=== PATIENT | female | born 1940 | race Caucasian/White ===

== ENCOUNTER → 2018-06-09 | Outpatient (CLI) | payer BC, MEDICARE | END | disposition home or self-care (01) | LOC: CFH 07:43 | PROVIDERS: ATTEND Internal Medicine Cardiovascular Disease | DX: I08.1 Rheumatic disorders of both mitral and tricuspid valves (principal); I11.9 Hypertensive heart disease without heart failure; I48.91 Unspecified atrial fibrillation | CPT/HCPCS: 93306 ==

== ENCOUNTER 2018-12-20 08:57 | Day surgery (SDC) | payer MEDICARE ==
[2018-12-18 12:22] LABS: BASOPHILS # (AUTO) 0.02 x10^3/uL (0-0.1); BASOPHILS % (AUTO) 0 % (0-1); EOSINOPHILS # (AUTO) 0.07 x10^3/uL (0-0.4); EOSINOPHILS % (AUTO) 1 % (1-7); LYMPHOCYTES # (AUTO) 1.23 x10^3/uL (1-3.4); LYMPHOCYTES % (AUTO) 22 % (22-44); MD NO; MEAN CORPUSCULAR HEMOGLOBIN 30.4 pg (27.0-34.8); MEAN CORPUSCULAR HGB CONC 32.3 g/dL (32.4-35.8); MEAN CORPUSCULAR VOLUME 94.1 fL (80-100); MEAN PLATELET VOLUME 10.1 fL (7.4-10.4); MONOCYTES # (AUTO) 0.59 x10^3/uL (0.2-0.8); MONOCYTES % (AUTO) 11 % (2-9); NEUTROPHILS # (AUTO) 3.64 x10^3/uL (1.8-6.8); NEUTROPHILS % (AUTO) 66 % (42-75); PLATELET COUNT 167 x10^3/uL (130-400); RED BLOOD COUNT 4.61 x10^6/uL (3.82-5.3); RED CELL DISTRIBUTION WIDTH 15.9 % (9.6-15.2)
[2018-12-18 12:30] LABS: INTERNATIONAL NORMALIZED RATIO 1.11 (0.93-1.1); PROTHROMBIN TIME 11.6 Seconds (9.6-11.5)
[2018-12-18 12:33] LABS: ANION GAP 4 mmol/L (5-15); CHLORIDE 105 mmol/L (98-107)
[~2018-12-20] VITALS: Ht 160 cm; Wt 98.1 kg
[~2018-12-20 08:57] MED LIST: ALLO300T PO; BISO5TAB2 PO; HYDR25TA6 PO; LEVO25TA4 PO; MULT-806 PO; RIVA20TA PO; magnesium PO
[2018-12-20] MEDS ORDERED: SODIUM CHLORIDE 0.9% 1,000 ML IV SCH ×2 (09:02→10:40)
[2018-12-20 09:14] VITALS: BP 145/80
[2018-12-20] MEDS ORDERED: DIPHENHYDRAMINE 50 MG/ML, 1ML IVPush ONE (09:30)
[2018-12-20] MEDS ORDERED: FENTANYL PF 100 MCG/2ML ONE (09:32)
[2018-12-20] MEDS ORDERED: HEPARIN 1,000 UNITS/ML, 10ML ONE (09:32)
[2018-12-20] MEDS ORDERED: NITROGLYCERIN 5 MG/ML, 10ML ONE (09:32)
[2018-12-20] MEDS ORDERED: DIPHENHYDRAMINE 50 MG/ML, 1ML ONE ×2 (09:33→09:34)
[2018-12-20] MEDS ORDERED: VERAPAMIL 2.5 MG/ML, 2ML ONE (09:33)
[2018-12-20] MEDS ORDERED: LIDOCAINE-MPF 1%, 5ML ONE (09:33)
[2018-12-20] MEDS ORDERED: MIDAZOLAM 1 MG/ML, 2ML ONE (09:33)
== END 2018-12-20 14:00 | disposition home or self-care (01) ==
LOC: CACL 08:57
PROVIDERS: ATTEND Internal Medicine Cardiovascular Disease
DX: I25.10 Atherosclerotic heart disease of native coronary artery without angina pectoris (principal); I35.0 Nonrheumatic aortic (valve) stenosis; I48.91 Unspecified atrial fibrillation; Z88.0 Allergy status to penicillin; Z88.8 Allergy status to other drugs, medicaments and biological substances; I10 Essential (primary) hypertension
CPT/HCPCS: 36415; 80048; 85025; 85610; 93454; 99156; C1769; C1894; J1200; J1644; J2250; J3010; Q9967

== ENCOUNTER 2019-01-16 08:52 | Outpatient (CLI) | payer MEDICARE ==
[2019-01-16] MEDS ORDERED: OMNIPAQUE 350 MG/ML, 150 ML BOTTLE ONE (15:00)
== END 2019-01-16 23:59 | disposition home or self-care (01) ==
LOC: CVU 08:52
PROVIDERS: ATTEND Internal Medicine Cardiovascular Disease
DX: I08.8 Other rheumatic multiple valve diseases (principal); I65.23 Occlusion and stenosis of bilateral carotid arteries; R91.8 Other nonspecific abnormal finding of lung field; I70.0 Atherosclerosis of aorta; M47.816 Spondylosis without myelopathy or radiculopathy, lumbar region; I48.91 Unspecified atrial fibrillation; I10 Essential (primary) hypertension; Z87.891 Personal history of nicotine dependence; Z90.49 Acquired absence of other specified parts of digestive tract
CPT/HCPCS: 71275; 74174; 93306; 93880; 94060; 94726; 94729; Q9967

== ENCOUNTER 2019-02-13 07:06 | Inpatient (IN) | payer MEDICARE ==
[~2019-02-13] VITALS: Ht 161.3 cm; Wt 99.0 kg
[2019-02-13] MEDS ORDERED: SODIUM CHLORIDE 0.9% 1,000 ML IV ONE (07:57)
[2019-02-13 07:58] VITALS: BP 143/65
[2019-02-13] MEDS ORDERED: ONDANSETRON 2MG/ML, 2ML IVPush PRN ×2 (08:00→11:00)
[2019-02-13] MEDS ORDERED: CHLORHEXIDINE 15 ML UDC MM PRN (08:00)
[2019-02-13 08:23] LABS: BASOPHILS # (AUTO) 0.02 x10^3/uL (0-0.1); BASOPHILS % (AUTO) 0 % (0-1); EOSINOPHILS # (AUTO) 0.07 x10^3/uL (0-0.4); EOSINOPHILS % (AUTO) 1 % (1-7); LYMPHOCYTES # (AUTO) 0.94 x10^3/uL (1-3.4); LYMPHOCYTES % (AUTO) 18 % (22-44); MD NO; MEAN CORPUSCULAR HEMOGLOBIN 30.8 pg (27.0-34.8); MEAN CORPUSCULAR HGB CONC 32.4 g/dL (32.4-35.8); MEAN CORPUSCULAR VOLUME 95.1 fL (80-100); MEAN PLATELET VOLUME 10.1 fL (7.4-10.4); MONOCYTES # (AUTO) 0.61 x10^3/uL (0.2-0.8); MONOCYTES % (AUTO) 12 % (2-9); NEUTROPHILS # (AUTO) 3.56 x10^3/uL (1.8-6.8); NEUTROPHILS % (AUTO) 69 % (42-75); PLATELET COUNT 146 x10^3/uL (130-400); RED BLOOD COUNT 4.65 x10^6/uL (3.82-5.3); RED CELL DISTRIBUTION WIDTH 16.2 % (9.6-15.2)
[2019-02-13] MEDS: PLEASE ENTER HEIGHT AND WEIGHT MC SCH ×2 (08:30→11:35)
[2019-02-13 08:31] LABS: INTERNATIONAL NORMALIZED RATIO 1.05 (0.93-1.1)
[2019-02-13 08:33] LABS: ALBUMIN 3.8 g/dL (3.4-5.0); ANION GAP 7 mmol/L (5-15); CALCIUM 10.3 mg/dL (8.5-10.1); CHLORIDE 105 mmol/L (98-107)
[2019-02-13 08:39] LABS: ALANINE AMINOTRANSFERASE 23 U/L (12-78); ALKALINE PHOSPHATASE 142 U/L (45-117); BILIRUBIN,TOTAL 0.9 mg/dL (0.2-1.0); CREATININE 0.77 mg/dL (0.55-1.02); TOTAL PROTEIN 7.7 g/dL (6.4-8.2)
[2019-02-13] MEDS ORDERED: PROTAMINE SULFATE 10 MG/ML, 5ML ONE (09:22)
[2019-02-13] MEDS ORDERED: FENTANYL PF 250 MCG/5ML ONE (09:23)
[2019-02-13] MEDS ORDERED: SCOPOLAMINE PATCH, 1.5MG PATCH.TD72 TD ONE (09:30)
[2019-02-13] MEDS ORDERED: SUCCINYLCHOLINE 20 MG/ML, 10ML ONE (09:32)
[2019-02-13] MEDS ORDERED: ONDANSETRON 2MG/ML, 2ML ONE (09:32)
[2019-02-13] MEDS ORDERED: CEFAZOLIN 1,000 MG ONE (09:32)
[2019-02-13] MEDS ORDERED: PHENYLEPHRINE 10 MG/ML ONE (09:32)
[2019-02-13] MEDS: HYDROCHLOROTHIAZIDE 25 MG TABLET PO SCH (10:30)
[2019-02-13] MEDS ORDERED: PROPOFOL 10 MG/ML, 20ML ONE (10:30)
[2019-02-13] MEDS: LEVOTHYROXINE 25 MCG TABLET PO SCH (10:30)
[2019-02-13] MEDS ORDERED: HEPARIN 1,000 UNITS/ML, 30ML ONE (10:30)
[2019-02-13] MEDS ORDERED: ROCURONIUM 10MG/ML,5ML ONE (10:30)
[2019-02-13] MEDS: RIVAROXABAN 20 MG TABLET PO SCH (10:30)
[2019-02-13] MEDS ORDERED: TEMPLATE NON-FORMULARY MED. (Bisoprolol Fumarate 5 MG) PO SCH (10:30)
[2019-02-13] MEDS ORDERED: DEXAMETHASONE 4 MG/ML, 1ML ONE ×2 (10:30)
[2019-02-13] MEDS ORDERED: PROTAMINE SULFATE 10 MG/ML, 25ML ONE (10:30)
[2019-02-13] MEDS ORDERED: EPHEDRINE 50 MG/ML, 1ML ONE (10:30)
[2019-02-13] MEDS ORDERED: ACETAMINOPHEN 325 MG TABLET PO PRN (11:00)
[2019-02-13] MEDS ORDERED: hydrALAzine 20 MG/ML, 1ML IVPush PRN (11:00)
[2019-02-13] MEDS ORDERED: HYDROcodone/APAP 5/325 TABLET PO PRN (11:00)
[2019-02-13] MEDS ORDERED: LABETALOL 5 MG/ML SYRINGE IVPush PRN (11:00)
[2019-02-13] MEDS ORDERED: POTASSIUM CHLORIDE 20 MEQ TAB.ER.PRT PO ONE (11:30)
[2019-02-13 20:00] VITALS: BP 110/35
[2019-02-14] MEDS: PLEASE ENTER HEIGHT AND WEIGHT MC SCH ×3 (00:30→09:32)
[2019-02-14 02:00] VITALS: BP 112/31
[2019-02-14 04:08] LABS: BASOPHILS # (AUTO) 0.04 x10^3/uL (0-0.1); BASOPHILS % (AUTO) 1 % (0-1); EOSINOPHILS % (AUTO) 0 % (1-7); LYMPHOCYTES # (AUTO) 0.48 x10^3/uL (1-3.4); LYMPHOCYTES % (AUTO) 6 % (22-44); MD NO; MEAN CORPUSCULAR HEMOGLOBIN 31.1 pg (27.0-34.8); MEAN CORPUSCULAR HGB CONC 32.1 g/dL (32.4-35.8); MEAN CORPUSCULAR VOLUME 96.9 fL (80-100); MEAN PLATELET VOLUME 10.6 fL (7.4-10.4); MONOCYTES # (AUTO) 0.37 x10^3/uL (0.2-0.8); MONOCYTES % (AUTO) 5 % (2-9); NEUTROPHILS # (AUTO) 7.07 x10^3/uL (1.8-6.8); NEUTROPHILS % (AUTO) 89 % (42-75); PLATELET COUNT 126 x10^3/uL (130-400); RED BLOOD COUNT 4.34 x10^6/uL (3.82-5.3); RED CELL DISTRIBUTION WIDTH 16.2 % (9.6-15.2)
[2019-02-14 04:19] LABS: ANION GAP 7 mmol/L (5-15); CALCIUM 9.5 mg/dL (8.5-10.1); CHLORIDE 106 mmol/L (98-107)
[2019-02-14 04:20] LABS: CREATININE 0.89 mg/dL (0.55-1.02)
[2019-02-14] MEDS ORDERED: ATENOLOL 50 MG TABLET PO SCH (06:00)
[2019-02-14 08:00] VITALS: BP 107/34
[2019-02-14] MEDS ORDERED: MULTIVITAMINS/MINERALS TABLET PO SCH (09:00)
[2019-02-14] MEDS: RIVAROXABAN 20 MG TABLET PO SCH (09:00)
[2019-02-14] MEDS: HYDROCHLOROTHIAZIDE 25 MG TABLET PO SCH (09:00)
[2019-02-14] MEDS ORDERED: ALLOPURINOL 300 MG TABLET PO SCH (09:00)
[2019-02-14] MEDS ORDERED: MAGNESIUM OXIDE 400 MG TABLET PO SCH (09:00)
[2019-02-14] MEDS: LEVOTHYROXINE 25 MCG TABLET PO SCH (09:00)
== END 2019-02-14 14:00 | disposition home or self-care (01) | DRG 266 ==
LOC: ORIP 07:06 → ICU 10:22 → DCLOUNGE 02-14 13:52
PROVIDERS: ADMIT Internal Medicine Cardiovascular Disease; ATTEND Internal Medicine Cardiovascular Disease
PROC: 02RF38Z Replacement of Aortic Valve with Zooplastic Tissue, Percutaneous Approach (ICD-10-PCS; principal; 2019-02-13)
PROC: B246ZZ4 Ultrasonography of Right and Left Heart, Transesophageal (ICD-10-PCS; 2019-02-13)
PROC: B3101ZZ Fluoroscopy of Thoracic Aorta using Low Osmolar Contrast (ICD-10-PCS; 2019-02-13)
PROC: 03HY32Z Insertion of Monitoring Device into Upper Artery, Percutaneous Approach (ICD-10-PCS; 2019-02-13)
DX: I35.0 Nonrheumatic aortic (valve) stenosis (principal); I50.43 Acute on chronic combined systolic (congestive) and diastolic (congestive) heart failure; D68.69 Other thrombophilia; E03.9 Hypothyroidism, unspecified; E66.9 Obesity, unspecified; E78.00 Pure hypercholesterolemia, unspecified; E87.6 Hypokalemia; Z96.649 Presence of unspecified artificial hip joint; Z96.659 Presence of unspecified artificial knee joint; I87.8 Other specified disorders of veins; R09.02 Hypoxemia; I11.0 Hypertensive heart disease with heart failure; Z00.6 Encounter for examination for normal comparison and control in clinical research program; I27.20 Pulmonary hypertension, unspecified; I48.0 Paroxysmal atrial fibrillation; Z87.891 Personal history of nicotine dependence; Z88.0 Allergy status to penicillin; Z88.8 Allergy status to other drugs, medicaments and biological substances; Z79.899 Other long term (current) drug therapy; Z79.01 Long term (current) use of anticoagulants; Z68.38 Body mass index [BMI] 38.0-38.9, adult; Z99.81 Dependence on supplemental oxygen; Z90.49 Acquired absence of other specified parts of digestive tract
CPT/HCPCS: 33361; 36415; 80048; 80053; 83880; 85025; 85347; 85610; 85730; 86850; 86900; 86923; 87081; 93005; 93308; 93312; 93321; 93325; 93355; C1760; C1769; C1894; G0378; J0690; J1100; J1644; J2405; J2704; J2720; J3010; J0330; J0360; J2370; J7030; Q9967

== ENCOUNTER 2019-03-13 08:41 | Outpatient (CLI) | payer MEDICARE | END 2019-03-13 23:59 | disposition home or self-care (01) | LOC: CVU 08:41 | PROVIDERS: ATTEND Internal Medicine Cardiovascular Disease | DX: I08.8 Other rheumatic multiple valve diseases (principal); I48.91 Unspecified atrial fibrillation; I10 Essential (primary) hypertension; Z95.2 Presence of prosthetic heart valve | CPT/HCPCS: 93306 ==

== ENCOUNTER → 2020-01-24 | Outpatient (CLI) | payer MEDICARE ==
[~2020-01-24] MED LIST changes: -BISO5TAB2 PO; +BISO5TAB8 PO
== END | disposition home or self-care (01) ==
LOC: CFH 09:12
PROVIDERS: ATTEND Internal Medicine Cardiovascular Disease
DX: I08.8 Other rheumatic multiple valve diseases (principal); I11.9 Hypertensive heart disease without heart failure; I65.29 Occlusion and stenosis of unspecified carotid artery
CPT/HCPCS: 93306